=== PATIENT | female | born 1955 | race Caucasian/White ===

== ENCOUNTER → 2017-12-25 | Outpatient (CLI) | payer MEDICARE, BC ==
[2015-03-21 16:11] VITALS: BMI 31.4
[~2017-12-25] MED LIST: ALB18R IH; ALB18R INH; ALBU2.5V36 INH; ALBU8.5H IH; ATEN1TAB39 PO; CAR6.25 PO; CARV10CP PEG; CARV12.578 PO; DOXY-179 PO; FLU45SYR25 IM ONLY; FLU60SYR30 IM ONLY; FLUT1DIS28 IH; FLUT9.9S; FURO-45 PO; FURO-47 PO; FURO80TA70 PO; GABA-549 PO; METO25TA23 PO; NYST15PO12 TP; OMEP-125 PO; OMEP40CA48 PO; OXYGEN ASDIRECTED; OXYGENHOME INH; Oxygen Concentrator; POTA-23 PO; POTA-28 PO; POTA20TA85 PO; POTA20TA94 PO; PRED-1 PO; PRED20TA6 PO; SIMV-49 PO; SIMV-54 PO; SULF-198 PO; TIO18R INH; TRIA1CAP85 PO; VAR05PT PO; VARE1TAB4 PO
[2017-12-25 14:04] LABS: PLATELET COUNT, AUTOMATED 332 K/uL (150-450)
[2017-12-25 14:15] LABS: LDL CHOLESTEROL 109 mg/dl
== END ==
LOC: LAB 13:52
PROVIDERS: ATTEND Nurse Practitioner Family
DX: I10 Essential (primary) hypertension (principal); E78.5 Hyperlipidemia, unspecified; I50.32 Chronic diastolic (congestive) heart failure; I50.9 Heart failure, unspecified; E66.9 Obesity, unspecified; R73.01 Impaired fasting glucose
CPT/HCPCS: 36415; 82040; 82247; 82310; 82374; 82435; 82465; 82565; 82947; 83036; 83718; 83880; 84075; 84132; 84155; 84295; 84443; 84450; 84460; 84478; 84520; 85025

== ENCOUNTER → 2018-07-30 | Outpatient (CLI) | payer MEDICARE, BC ==
[2015-03-21 16:11] VITALS: BMI 31.4
[~2018-07-30] MED LIST changes: +NYST15PO4 TP
[2018-07-30 14:02] LABS: PLATELET COUNT, AUTOMATED 361 K/uL (150-450)
--- NOTE | 2018-07-30 14:31 | EKG ---
[place]AC[place] [facility] [place] NAME: MARICEL HARRIS : [id number] MR: [id number]: [id number] EXAM DATE: ORDERING PHYSICIAN: MAUREEN LO TECHNOLOGIST: JONATHAN Test Reason : TAHCY-CARDIA Blood Pressure : / mmHG Vent. Rate : 105 BPM Atrial Rate : 105 BPM P-R Int : 150 ms QRS Dur : 084 ms QT Int : 346 ms P-R-T Axes : 068 036 055 degrees QTc Int : 457 ms Sinus tachycardia Low voltage QRS Borderline ECG When compared with ECG of 18-AUG-2017 12:46, Vent. rate has increased BY 47 BPM Referred By: TERESITA Confirmed By:
== END ==
LOC: LAB 13:32
PROVIDERS: ATTEND Nurse Practitioner Family
DX: R00.0 Tachycardia, unspecified (principal)
CPT/HCPCS: 36415; 82040; 82247; 82310; 82374; 82435; 82565; 82607; 82746; 82947; 84075; 84132; 84155; 84295; 84443; 84450; 84460; 84520; 85025

== ENCOUNTER → 2018-08-17 | Outpatient (CLI) | payer MEDICARE, BC ==
[2015-03-21 16:11] VITALS: BMI 31.4
[~2018-08-17] MED LIST changes: +LISI5TAB25 PO
== END ==
LOC: LAB 15:19
PROVIDERS: ATTEND Nurse Practitioner Family
DX: I10 Essential (primary) hypertension (principal)
CPT/HCPCS: 36415; 82310; 82374; 82435; 82565; 82947; 84132; 84295; 84520

== ENCOUNTER → 2019-01-21 | Outpatient (CLI) | payer MEDICARE, BC ==
[2015-03-21 16:11] VITALS: BMI 31.4
[~2019-01-21] MED LIST changes: +ATOR-1 PO; +FLU60VIA41 IM
[2019-01-21 10:32] LABS: PLATELET COUNT, AUTOMATED 308 K/uL (150-450)
[2019-01-21 10:48] LABS: LDL CHOLESTEROL 171 mg/dl
== END ==
LOC: LAB 10:07
PROVIDERS: ATTEND Nurse Practitioner Family
DX: E78.5 Hyperlipidemia, unspecified (principal); E66.9 Obesity, unspecified; I10 Essential (primary) hypertension
CPT/HCPCS: 36415; 82040; 82247; 82310; 82374; 82435; 82465; 82565; 82947; 83718; 84075; 84132; 84155; 84295; 84443; 84450; 84460; 84478; 84520; 85025